=== PATIENT | male | born 1960 | race Caucasian/White ===

== ENCOUNTER 2016-07-27 08:29 | Emergency (ER) | payer BC, OTHER ==
[2016-07-27] MEDS ORDERED: SODIUM CHLORIDE 0.9% 1,000 ML ONE (08:58)
[2016-07-27] MEDS ORDERED: CEFTRIAXONE 1 GM VIAL ONE (11:25)
[2016-07-27] MEDS ORDERED: SODIUM CHLORIDE 0.9% 250 ML IV ONE (11:25)
== END 2016-07-27 12:16 | disposition home or self-care (01) ==
LOC: ER 08:29
DX: J44.9 Chronic obstructive pulmonary disease, unspecified (principal); R06.00 Dyspnea, unspecified; J15.9 Unspecified bacterial pneumonia; Z79.899 Other long term (current) drug therapy; Z79.84 Long term (current) use of oral hypoglycemic drugs; Z79.82 Long term (current) use of aspirin; Z87.891 Personal history of nicotine dependence
CPT/HCPCS: 36415; 71010; 80053; 81001; 82553; 83605; 83880; 84484; 85025; 85610; 85730; 87040; 93005; 96361; 96365; 99284; J0696; J7050